=== PATIENT | female | born 1955 | race Caucasian/White ===

== ENCOUNTER 2020-11-18 11:54 | Emergency (ER) | payer OTHER, SELFPAY ==
--- NOTE | ~2020-11-18 | CT_ITS ---
EXAMINATION: CT HEAD WITHOUT IV CONTRAST CT CERVICAL SPINE WITHOUT IV CONTRAST CT MAXILLOFACIAL WITHOUT IV CONTRAST INDICATION: Head trauma. Rule out fracture. Neck pain. Left zygomatic abrasions. COMPARISON: None available. TECHNIQUE: Multidetector CT acquisitions of the head, maxillofacial region, and cervical spine were obtained without IV contrast. Multiplanar reformats were acquired and utilized for image interpretation. This CT examination was performed using dose optimization techniques as appropriate, variously including the following: *Automated exposure control *Adjustment of mA and/or kV according to patient size (this includes techniques or standardized protocols for targeted exams where dose is matched to indication/reason for exam; i.e. extremities or head) *Use of iterative reconstruction technique FINDINGS: HEAD: There is no intracranial hemorrhage, hydrocephalus, extra-axial surface collection, midline shift, or other herniation pattern. Hendrickson to white matter differentiation is diffusely maintained without evidence of an evolved acute territorial infarct. The basilar cisterns are preserved. No significant soft tissue abnormality. No acute osseous abnormality. MAXILLOFACIAL: No acute maxillofacial fractures. There is soft tissue swelling overlying the left zygomatic arch. Advanced degenerative changes involving the TMJs bilaterally. Significant leftward deviation of the nasal septum with a leftward directed nasal septal spur that contacts the lateral wall the left nasal cavity. There deepti bullosa within the middle turbinates bilaterally. Paranasal sinuses and mastoid air cells remain well-aerated. CERVICAL SPINE: Straightening of the cervical lordosis. There is multilevel cervical spondylosis, greatest at C5-C6 and C6-C7. Mild degenerative anterior subluxation of C3 on C4, C4 on C5, and C7 on T1. Hypertrophic degenerative changes at the atlantodental interval. Advanced multilevel hypertrophic facet arthropathy. There is no acute fracture and there is no acute subluxation. The craniocervical and atlantoaxial articulations are normal. There is no prevertebral soft tissue swelling. No significant soft tissue abnormality within the neck. The visualized lung apices are clear. CT/CT cervical spine wo con IMPRESSION: 1. No acute intracranial abnormality. 2. No acute osseous abnormality within the cervical spine. 3. No acute maxillofacial fractures. There is soft tissue swelling overlying the left zygomatic arch. Advanced degenerative changes involving the TMJs bilaterally. Significant leftward deviation of the nasal septum with a leftward directed nasal septal spur that contacts the lateral wall the left nasal cavity.
[2020-11-18 11:58] VITALS: BP 165/87; PULSE 66; RESP 16; TEMP 37.1; O2SAT 96; BMI 21.4
--- NOTE | 2020-11-18 13:27 | ED_ITS ---
HPI - General Adult General Chief complaint: Fall Stated complaint: FALL AT WORK Time Seen by Provider: 11/18/20 13:11 Source: patient Mode of arrival: ambulatory Limitations: no limitations History of Present Illness HPI narrative: 65-year-old female who presents emergency department for evaluation of injuries from a fall. The patient states that she was walking into work this morning at around 10:00 a.m. when she fell. She states she fell forward striking the left side of her face, left shoulder and hands on the pavement. She denied loss of consciousness. She did see occupational nurse at her job site who placed ice on her left face and gave her Tylenol with some relief for pain. Since the fall, she has developed a headache which is constant, mild to moderate intensity, left face pain and left shoulder pain. She has also developed pain in her left neck. She denied numbness, weakness, nausea or vomiting. She is not certain when her last tetanus shot was given. Related Data Allergies Allergy/AdvReac Type Severity Reaction Status Date / Time No Known Allergies Allergy Unverified 04/21/20 16:56 Review of Systems Review of Systems: Yes all other systems are reviewed and are negative [facility] Past Medical History [facility] Narrative: The patient has no significant past medical history. She denies tobacco use, she rarely drinks alcohol, she occasionally takes a marijuana edible. Social History Social History Alcohol intake: never Smoking Status: Never smoker Use of substances other than those prescribed or required for medical reasons: No Advance Directives: Yes Advance Directives Information Provided: Yes Advance Directives on File: No Physical Exam Vital Signs: Vital Signs: Last Vital Signs Temp 98.8 F 11/18/20 11:58 Pulse 58 11/18/20 14:07 Resp 16 11/18/20 14:07 BP 150/80 H 11/18/20 14:07 Pulse Ox 99 11/18/20 14:07 Body Mass Index 21.4 Const: General: cooperative and healthy appearing Orientation/consciousness: oriented to person and oriented to place Limitations: no limitations HENMT: Head: Yes normal to inspection, Yes normocephalic and Yes other (Abrasion to left zygomatic arch, this area is tender to palpation) Ears: external ears normal General nose exam: Normal external nose present Face and sinus: Yes other (As above) Mouth: Normal oral and palatal mucosa present Throat: Yes posterior oropharynx normal Eyes: Periorbital: periorbital findings normal Eyelids: Yes eyelids normal Conjunctivae: conjunctivae normal Sclerae: sclerae normal Corneas: corneas normal Pupils: Equal, round and reactive pupils present Direct Ophthalmoscopy: normal light reflex Neck: Neck: Yes full ROM, Yes no lymphadenopathy, Yes no meningeal signs, Yes trachea midline and Yes other (Diffuse, mild C-spine tenderness) Chest: Chest palpation & inspection: normal inspection of the chest and normal palpation of entire chest wall Resp: Effort & Inspection: normal respiratory effort and able to speak in complete sentences Auscultation: clear to auscultation bilaterally Cardio: Rate: regular rate Rhythm: regular rhythm Heart sounds: S1 normal heart sound present, S2 normal heart sound present and no murmurs GI: Inspection: Yes normal to inspection Palpation (GI): Soft to palpation, nontender, no guarding, not rigid and No hepatosplenomegaly present : General: Yes no CVA tenderness Back/Spine/Pelvis: Back: no CVA tenderness Cervical Spine: normal cervical lordosis Thoracic/Lumbar Spine: thoracic and lumbar spine normal to inspection Skin: Lesions: no lesions Rashes: no rashes Wounds: no wounds Neuro: General: oriented to person, oriented to place and no meningeal signs Cranial nerves: Yes CN's II-XII intact bilaterally and Yes Equal, round and reactive pupils present Cognition (Neuro): normal cognition Motor exam (neuro): 5/5 motor strength present throughout Extrem: Other: Ecchymosis to left deltoid area of the shoulder, full range of motion of the shoulder actively and passively without any limitations or pain General: Yes normal to inspection and Yes full ROM Psych: Appearance: well kempt Mental Status: mental status grossly normal Speech and movement: Normal speech and movement present Affect: normal affect Attitude: cooperative Thought process: Normal thought process present Thought content: Normal thought content present Course Course Course Narrative: 65-year-old female who presents emergency department for evaluation of injuries from a fall from a standing position with headache, neck pain, left facial abrasion, left facial tenderness and C-spine tenderness. I did order a CT scan of the patient's head, cervical spine and facial bones. I will try to check the patient's tetanus status with her PCP. 1447: Patient's last tetanus shot was given in 2019 therefore she does not need a vaccination today. Patient's CT scans of her head, neck and facial bones revealed no acute process. I did discuss this with the patient. Patient was advised to take Tylenol ibuprofen for pain. She was given printed instructions on head injury. She will need to follow-up with Occupational Health to determine her return to work status. Discharge Plan Discharge Clinical Impression: Closed head injury Qualifiers: Encounter type: initial encounter Qualified Code(s): S09.90XA - Unspecified injury of head, initial encounter Contusion of face Qualifiers: Encounter type: initial encounter Qualified Code(s): S00.83XA - Contusion of other part of head, initial encounter Acute neck sprain Qualifiers: Encounter type: initial encounter Qualified Code(s): S13.9XXA - Sprain of joints and ligaments of unspecified parts of neck, initial encounter Contusion of left shoulder Qualifiers: Encounter type: initial encounter Qualified Code(s): S40.012A - Contusion of left shoulder, initial encounter Patient Disposition: Home, Self-Care Instructions: Head Injury (ED), Cervical Sprain (ED) Additional Instructions: The CT scans of your head, neck and facial bones did not reveal any broken bones. Take ibuprofen 200 mg pills, 3 pills every 6 hours as needed for pain. Take Tylenol (acetaminophen) 500 mg pills, 2 pills every 4 to 6 hours as needed for pain. Follow-up with the [facility] in 2-3 days for re-evaluation and to determine your return to work status. Please return to the emergency department if your symptoms get worse or if you develop any symptoms that are concerning to you.
[2020-11-18 14:07] VITALS: BP 150/80; PULSE 58; RESP 16; O2SAT 99
--- NOTE | 2020-11-18 15:25 | PC.NURSE ---
pt states she fell from standing, denies dizziness prior to the fall.she states she thinks she slipped or tripped and fell. She has been seen by provider and is ready for discharge.
== END 2020-11-18 15:26 | disposition home or self-care (01) ==
PROVIDERS: Emergency Provider Emergency Medicine Emergency Medical Services; PCP Nurse Practitioner Adult Health
DX: S09.90XA Unspecified injury of head, initial encounter (principal); S00.83XA Contusion of other part of head, initial encounter; S13.9XXA Sprain of joints and ligaments of unspecified parts of neck, initial encounter; S40.012A Contusion of left shoulder, initial encounter; W01.0XXA Fall on same level from slipping, tripping and stumbling without subsequent striking against object, initial encounter; Y93.01 Activity, walking, marching and hiking; Y92.89 Other specified places as the place of occurrence of the external cause; Y99.0 Civilian activity done for income or pay
CPT/HCPCS: 70450; 70486; 72125; 99284

== ENCOUNTER → 2020-11-23 13:13 | Outpatient (BNVA) | payer OTHER, SELFPAY | PROVIDERS: PCP Nurse Practitioner Adult Health; Visit Provider Physician Assistant Medical | DX: S00.83XA Contusion of other part of head, initial encounter (principal); S40.012A Contusion of left shoulder, initial encounter; W18.30XA Fall on same level, unspecified, initial encounter | CPT/HCPCS: 99204 ==

== ENCOUNTER → 2020-11-30 11:36 | Outpatient (BNVA) | payer OTHER, SELFPAY | PROVIDERS: PCP Nurse Practitioner Adult Health; Visit Provider Physician Assistant | DX: S00.83XA Contusion of other part of head, initial encounter (principal); S40.012A Contusion of left shoulder, initial encounter; W18.30XA Fall on same level, unspecified, initial encounter | CPT/HCPCS: 99213 ==

== ENCOUNTER → 2020-12-20 15:55 | Outpatient (BNVA) | payer OTHER, SELFPAY | PROVIDERS: PCP Nurse Practitioner Adult Health; Visit Provider Physician Assistant | DX: S09.90XD Unspecified injury of head, subsequent encounter (principal); S46.812D Strain of other muscles, fascia and tendons at shoulder and upper arm level, left arm, subsequent encounter; W18.30XD Fall on same level, unspecified, subsequent encounter; H81.90 Unspecified disorder of vestibular function, unspecified ear; M25.512 Pain in left shoulder; M54.2 Cervicalgia | CPT/HCPCS: 99213 ==

== ENCOUNTER → 2021-01-17 12:05 | Outpatient (BNVA) | payer OTHER, SELFPAY | PROVIDERS: PCP Nurse Practitioner Adult Health; Visit Provider Physician Assistant | DX: S46.811D Strain of other muscles, fascia and tendons at shoulder and upper arm level, right arm, subsequent encounter (principal); S46.912D Strain of unspecified muscle, fascia and tendon at shoulder and upper arm level, left arm, subsequent encounter; S16.1XXD Strain of muscle, fascia and tendon at neck level, subsequent encounter; S00.93XD Contusion of unspecified part of head, subsequent encounter; X58.XXXD Exposure to other specified factors, subsequent encounter; R51.9 Headache, unspecified; R42 Dizziness and giddiness | CPT/HCPCS: 99214 ==

== ENCOUNTER → 2021-01-31 14:45 | Outpatient (BNVA) | payer OTHER, SELFPAY | PROVIDERS: PCP Nurse Practitioner Adult Health; Visit Provider Physician Assistant | DX: S49.92XD Unspecified injury of left shoulder and upper arm, subsequent encounter (principal); X58.XXXD Exposure to other specified factors, subsequent encounter; F07.81 Postconcussional syndrome; R42 Dizziness and giddiness | CPT/HCPCS: 99213 ==